=== PATIENT | male | born 1950 | race Two or more races ===

== ENCOUNTER 2021-08-03 10:57 | Emergency (ER) | payer OTHER ==
[2021-08-03] MEDS ORDERED: ACETAMINOPHEN 500 MG TABLET (FP) PO ONE (11:31)
[2021-08-03] MEDS ORDERED: ACETAMINOPHEN 500 MG TABLET (FP) ONE (11:34)
[2021-08-03] MEDS ORDERED: METHOCARBAMOL 500 MG TABLET PO ONE (11:37)
[2021-08-03] MEDS ORDERED: DIPHTH,PERTUSS(ACELL),TET 0.5 ML DISP.SYRIN IM ONE ×2 (11:38→11:45)
[2021-08-03] MEDS ORDERED: METHOCARBAMOL 500 MG TABLET ONE (11:39)
[2021-08-03 11:44] VITALS: TEMP 97.4; BMI 20.7
[2021-08-03 14:24] VITALS: BP 129/77; PULSE 76
[2021-08-03] MEDS ORDERED: LOCK ITEM NR ONE (14:52)
[2021-08-04 14:12] LABS: SARS-CoV-2 NAA Not Detected (Not Detected)
== END 2021-08-03 14:25 | disposition home or self-care (01) ==
LOC: EDBD 10:57 → FER 10:57
PROC: 3E0234Z Introduction of Serum, Toxoid and Vaccine into Muscle, Percutaneous Approach (ICD-10-PCS; principal; 2021-08-03)
DX: M62.838 Other muscle spasm (principal); S09.90XA Unspecified injury of head, initial encounter; S01.111A Laceration without foreign body of right eyelid and periocular area, initial encounter; W01.0XXA Fall on same level from slipping, tripping and stumbling without subsequent striking against object, initial encounter; Y92.091 Bathroom in other non-institutional residence as the place of occurrence of the external cause
CPT/HCPCS: 70450-TC; 72125-TC; 90471; 90715; 99285-25; C9803; U0003; U0005